=== PATIENT | male | born 1995 | race African-American/Black ===

== ENCOUNTER 2017-11-16 12:12 | Emergency (ER) | payer SELFPAY ==
[~2017-11-16] VITALS: Ht 175.3 cm; Wt 70.0 kg
[~2017-11-16 12:12] MED LIST: Z.0.NO CURRENT MEDS
[2017-11-16 12:20] VITALS: BP 130/87; PULSE 85; RESP 22; TEMP 98.4; O2SAT 100
[2017-11-16] MEDS ORDERED: LIDOCAINE HCL 1% PF 30 ML VIAL INFIL ONE (12:30)
[2017-11-16] MEDS ORDERED: IBUP-232 PO (12:54)
--- NOTE | 2017-11-16 12:55 | PD ---
HPI Chief Complaint: Fall Time Seen by Provider: 12:16 Travel History International Travel<30 days: No Contact w/Intl Traveler<30days: No Traveled to known affect area: No History of Present Illness HPI 22-year-old male complains of shoulder pain. Patient states that he fell off the roof in the left shoulder. Patient denies loss of consciousness. Patient states that he hit the right side of forehead against the ground. Patient denies any headache. Patient denies any neck pain. Patient denies any visual change. Patient denies any chest pain or shortness of breath. Patient denies abdominal pain. Patient denies any back pain. Patient denies any focal weakness or numbness of the extremity. Patient complained of sharp pain localized to the left shoulder. Patient denies any pain radiation. Patient states that the pain is worse with movement of the left shoulder joint. On a scale 1-10 the pain is a 10. PFSH Past Medical History Medical History: Denies Significant Hx ?: Not Past Surgical History Surgical History: No Previous Surgery Social History Alcohol Use: No Tobacco Use: No Substance Use: Yes (weed) Allergies-Medications (Allergen,Severity, Reaction): Coded Allergies: No Known Allergies (Verified , 11/19/10) Reported Meds & Prescriptions Reported Meds & Active Scripts Active No Active Prescriptions or Reported Medications Review of Systems General / Constitutional: No: Fever Eyes: No: Visual changes HENT: No: Headaches Cardiovascular: No: Chest Pain or Discomfort Respiratory: No: Shortness of Breath Gastrointestinal: No: Abdominal Pain Genitourinary: No: Dysuria Musculoskeletal: Positive: Pain Skin: No Rash Neurologic: No: Weakness Psychiatric: No: Depression Endocrine: No: Polydipsia Hematologic/Lymphatic: No: Easy Bruising Physical Exam Narrative GENERAL: Well-nourished, well-developed patient. SKIN: Focused skin assessment warm/dry. HEAD: Normocephalic. Small soft tissue swelling in the right forehead. EYES: No scleral icterus. No injection or drainage. Pupils 2 mm equal reactive. NECK: Supple, trachea midline. No JVD or lymphadenopathy. No tenderness on palpation of the cervical spine. CARDIOVASCULAR: Regular rate and rhythm without murmurs, gallops, or rubs. RESPIRATORY: Breath sounds equal bilaterally. No accessory muscle use. GASTROINTESTINAL: Abdomen soft, non-tender, nondistended. MUSCULOSKELETAL: Patient has soft tissue indentation below the acromion of the left shoulder joint. Moderate diffuse tenderness over the left shoulder joint. Limited range of motion of the shoulder secondary to pain. Sensory motor function distally intact. BACK: Nontender without obvious deformity. No CVA tenderness. Data Data Last Documented VS Vital Signs Date Time Temp Pulse Resp B/P (MAP) Pulse Ox O2 Delivery O2 Flow Rate FiO2 11/16/17 12:20 98.4 85 22 130/87 (101) 100 Orders Orders Lidocaine Pf 1% Inj (Xylocaine-Mpf 1% In (11/16/17 12:30) Shoulder, Limited(2vws) (11/16/17 12:19) Splint Or Brace Apply/Monitor (11/16/17 12:42) [facility] Medical Decision Making Medical Screen Exam Complete: Yes Emergency Medical Condition: Yes Differential Diagnosis Differential diagnosis including contusion, fracture, dislocation. Narrative Course 32-year-old male with left shoulder injury. Examination consistent with left shoulder dislocation. Sling and swath applied. Procedures Procedure Narrative 10 cc 1% lidocaine left shoulder joint injection. Traction countertraction applied to left arm. Left shoulder dislocation was reduced successfully. Sling and swath applied. Diagnosis Primary Impression: Dislocation of shoulder, left, closed Qualified Codes: S43.005A - Unspecified dislocation of left shoulder joint, initial encounter Patient Instructions: General Instructions Additional Instructions: Ice pack as needed. Ibuprofen as needed for pain. Follow-up with orthopedist. Med/Other Pt SpecificInfo: Prescription(s) given Scripts Ibuprofen (Ibuprofen) 600 Mg Tab 600 MG PO TID for Pain, #30 TAB 0 Refills Prov: Abiel Knight MD 11/16/17 Disposition: 01 DISCHARGE HOME Condition: Stable Abiel Knight MD November 16, 2017 12:55
--- NOTE | 2017-11-16 14:11 | RADRPT ---
EXAM DATE: 11/16/2017 1:51 PM EDT AGE/SEX: 22 years / Male INDICATIONS: Post reduction left shoulder CLINICAL DATA: This is the patient's initial encounter. Patient reports that signs and symptoms have been present for 1 day and indicates a pain score of 4/10. MEDICAL/SURGICAL HISTORY: None. None. COMPARISON: None. FINDINGS: Bony structures are intact and in normal alignment. Joints are intact without dislocation or signifi cant arthropathy. Osseous density is normal. Soft tissues are unremarkable. No radiopaque foreign bodies seen. CONCLUSION: Unremarkable exam. No dislocation appreciated. Electronically signed by: Raffi Bay MD 11/16/2017 2:10 PM EDT
== END 2017-11-16 13:47 | disposition home or self-care (01) ==
LOC: NEPE 12:12
DX: S43.005A Unspecified dislocation of left shoulder joint, initial encounter (principal); W13.2XXA Fall from, out of or through roof, initial encounter
CPT/HCPCS: 23650; 73030